=== PATIENT | female | born 1980 | race Caucasian/White ===

== ENCOUNTER → 2020-11-02 16:19 | Outpatient (CLI) | payer BC, SELFPAY ==
--- NOTE | 2020-11-02 16:24 | DI.ECHO.S_ITS ---
[place] [facility]---------+ [facility] +---------+ : : [address] : [address] : : : : [id number] : : : : Phone: [phone]+ Echocardiogram Report + + :Name: DENIA FUENTES Study Date: 11/02/2020 Height: 61 in : :[facility] ReadingLocation: Weight: 140 lb : : Gender: Female BSA: 1.6 m2 : :: 1980 Age: 40 yrs BP: 119/80 mmHg: :Reason For Study: PALPITATIONS : :Ordering Physician: MARIA EUGENIA, : :DEREK Performed By: Raina Owusu : :Referring: DEREK DEL CID : + + Interpretation Summary The ejection fraction is estimated to be 60-65%. Normal diastolic function. The right ventricle is normal in size and function. There is mild mitral regurgitation. Unable to estimate PASP. Procedure: A two-dimensional transthoracic echocardiogram with color flow and Doppler was performed. The study quality was technically adequate. There is no prior echocardiogram noted for this patient. The patient was in sinus bradycardia with heart rates between 52-64 bpm during the exam. Left Ventricle: The left ventricle is normal in size and wall thickness. The ejection fraction is estimated to be 60-65%. Diastolic parameters suggest probable normal left ventricular diastolic function and normal filling pressures. Right Ventricle: The right ventricle is normal in size and function. Atria: The left atrial size is normal. Right atrial size is normal. There is no Doppler evidence for an interatrial shunt. Mitral Valve: The mitral valve is normal in structure and function. There is mild mitral regurgitation. Aortic Valve: The aortic valve is trileaflet. The aortic valve opens well. There is no aortic valve stenosis. No aortic regurgitation is present. Tricuspid Valve: The tricuspid valve is normal in structure and function. Pulmonary artery pressures cannot be estimated because of the lack of a measurable TR jet velocity but the IVC suggests a CVP of around 5 mmHg. Pulmonic Valve: The pulmonic valve leaflets are thin and pliable; valve motion is normal. There is trace pulmonic regurgitation. Great Vessels: The aortic root is normal size. The ascending aorta could not be visualized. The IVC is dilated (diameter is greater than 2.1 cm) yet it collapses greater than 50% with a sniff. This suggests a right atrial pressure of 8 mm Hg. Pericardium/ Pleura There is no pericardial effusion. There is no pleural effusion. MMode/2D Measurements & Calculations LVIDd: 4.5 cm LVOT diam: 2.1 cm LVIDs: 3.2 cm Ao root diam: 2.8 cm FS: 28.3 % Ao Arch Diam (Prox Trans): 2.5 cm IVSd: 0.59 cm LVPWd: 0.62 cm LV diego. diameter/BSA (cm/m^2): 2.8 LV sys. diameter/BSA (cm/m^2): 2.0 LA A2 area: 17.3 cm2 RA long axis: 4.4 cm LA A4 area: 13.6 cm2 RA area: 12.7 cm2 LA length (vol): 4.3 cm RA vol: 31.3 ml LA vol: 46.0 ml RA : 19.3 ml/m2 LA vol index: 28.3 ml/m2 IVC diam: 2.1 cm RVD1 (basal): 3.3 cm TAPSE: 2.4 cm Doppler Measurements & Calculations Ao V2 max: 106.8 cm/sec LVOT Max Francisco Javier: 60.2 cm/sec Ao V2 mean: 74.1 cm/sec LV V1 max P.5 mmHg Ao max P.6 mmHg LV V1 VTI: 14.2 cm Ao mean P.5 mmHg DYAN(I,D): 2.1 cm2 Ao V2 VTI: 23.4 cm DYAN(V,D): 1.9 cm2 sev ratio: 0.61 DYAN indexed to BSA (cm^2/m^2): 1.3 MV E max francisco javier: 99.0 cm/sec PA V2 max: 87.4 cm/sec MV A max francisco javier: 46.6 cm/sec PA V2 mean: 63.3 cm/sec MV E/A: 2.1 PA mean P.8 mmHg Med Peak E' Francisco Javier: 12.4 cm/sec PA pr([employer]): 8.8 mmHg E/E' med: 8.0 Lat Peak E' Francisoc Javier: 16.0 cm/sec E/E' lat: 6.2 E/e' average: 7.1 MV dec time: 0.17 sec SV([facility]): 48.6 ml Reading Physician:05:[id number] PM
== END ==
PROVIDERS: Referring Provider Internal Medicine Cardiovascular Disease; Visit Provider Internal Medicine Cardiovascular Disease
DX: I34.0 Nonrheumatic mitral (valve) insufficiency (principal); R00.2 Palpitations
CPT/HCPCS: 93306